=== PATIENT | male | born 1950 | race Caucasian/White ===

== ENCOUNTER 2025-09-22 10:17 | Day surgery (SDC) | payer OTHER ==
--- NOTE | 2025-09-15 14:54 | ELECTROCARDIOGRAPH REPORT ---
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 KWAN Walters Measurements Intervals [place] Rate: 73 P: 68 ME: 172 QRS: 64 QRSD: 88 T: 66 QT: 389 QTc: 429 Interpretive Statements Sinus rhythm Consider left atrial enlargement Low voltage, precordial leads Electronically Signed On 09-15-2025 18:20:[address] KWAN Walters Please click the below link to view image of tracing.
[2025-09-15 15:18] LABS: MEAN PLATELET VOLUME 7.2 FL (7.4-10.4); PRE OP HEMATOCRIT 45.3 % (42.0-52.0); PRE OP HEMOGLOBIN 15.2 g/dL (14.0-17.9); PRE OP PLATELET COUNT 280 X10'3 (140-440); PRE OP WHITE BLOOD COUNT 9.9 10'3 (4.8-10.8); RED CELL DISTRIBUTION WIDTH 13.8 % (11.5-14.5)
[2025-09-15 15:38] LABS: CREATININE 1.12 MG/DL (0.60-1.10); PRE OP ALT 23 U/L (30-65); PRE OP ANION GAP 5 (8-16); PRE OP AST 16 U/L (10-37); PRE OP BILIRUB, TOTAL 0.2 MG/DL (0.0-1.0); PRE OP GLUCOSE 90 MG/DL (70-104); PRE OP POTASSIUM 4.2 MMOL/L (3.4-5.1); PRE OP SODIUM 142 MMOL/L (135-145); TOTAL CARBON DIOXIDE 31.0 MMOL/L (24-32); eGFR 64 ML/MIN
[2025-09-22] VITALS (16 sets, daily range): BP systolic 130–153; BP diastolic 69–95; PULSE 65–80; RESP 12–22; TEMP 98.2; O2SAT 93–98
[~2025-09-22] VITALS: Ht 180.3 cm; Wt 88.5 kg
[2025-09-22] MEDS: ceFAZolin 2gm/dext,iso 50mL 50 ML IV ONE (09:50)
[~2025-09-22 10:17] MED LIST: ASPI-1265 PO; BUPIVAcaine/PF 2.5mg/ml (0.25%) 10ml vial ONE; CHOL500044 PO; GLUC-99 PO; LIDOcaine 1% 30ml preserv. free vial ONE; MULT-1172 PO; ringers solution, lacted 1,000 ML IV SCH
[2025-09-22] MEDS ORDERED: BUPIVACAINE liposomal/PF 13.3 MG/ML 10mL vial IM ONE (11:54)
[2025-09-22] MEDS ORDERED: BUPIVAcaine/PF 2.5mg/ml (0.25%) 10ml vial ONE (11:54)
--- NOTE | 2025-09-22 12:09 | HISTORY AND PHYSICAL ---
History & Physical Providers to CC CC: ALEX POOLE MD ~ History of Present Illness Reason for Admit\Complaint: Left inguinal hernia History of Present Illness This is an interval history and physical exam Patient was seen in the office greater than 30 days ago and diagnosed with left inguinal hernia He denies any change in his past medical history (please see previous history and physical exam for all pertinent details) He is scheduled for robotic assisted, laparoscopic left possible right inguinal hernia repair with mesh He has a complicated abdominal surgical history and this case may take longer than usual and require lysis of adhesions Allergies: Coded Allergies: No Known Allergies (Unverified , 12/30/23) Home Medications Home Medications Active Reported Vitamin D3 (Cholecalciferol (Vitamin D3)) 125 Mcg (5000 Unit) Tablet 1 Tab PO DAILY 30 Days Aspirin 81 Mg Tab.chew 1 Tab PO DAILY 30 Days Subeggd-Rhaiy-Okq Complex Cplt (Gluc/Tommy-Msm#1/Vit C/Nathanael/Bor) 1 Each Tablet 1 Each PO DAILY Centrum Silver Men Tablet (Multivit-Min/FA/Lycopen/Lutein) 300 Mcg-60 Mcg-600 Mcg-300 Mcg Tablet 1 Tab PO DAILY Family History Family History: Patient reports no known family medical history. ROS ROS Reviewed and negative Exam Vitals: Vital Signs Date Time Temp Pulse Resp B/P (MAP) Pulse Ox O2 Delivery O2 Flow Rate FiO2 09/22/25 10:58 80 15 96 09/22/25 10:25 Room Air General: 75-year-old male in no acute distress Chest: Lungs are clear to auscultation bilaterally Cardiovascular: Regular rate and rhythm without murmurs Abdomen: Soft and nondistended Surgical scars consistent with past surgical history Left inguinal hernia Left side marked with indelible ink Problems: (1) Left inguinal hernia Assessment & Plan: The risks, benefits, and alternatives to a robotic assisted, laparoscopic left possible right, possible open inguinal hernia repair with mesh were discussed with the patient. Risks include, but are not limited to, bleeding, infection, injury to intra-abdominal structures, hernia recurrence and chronic postoperative pain. We will proceed with surgery as scheduled ALEX POOLE MD Sep 22, 2025 12:08
[2025-09-22] MEDS ORDERED: midazolam 1 mg/ML 2ml injection ONE (12:16)
[2025-09-22] MEDS ORDERED: fentaNYL/PF 50MCG/1 ML 2ML syringe ONE (12:16)
[2025-09-22] MEDS: BUPIVAcaine/PF 2.5mg/ml (0.25%) 10ml vial IJ ONE (12:35)
[2025-09-22] MEDS: BUPIVACAINE liposomal/PF 13.3 MG/ML 10mL vial IM ONE (12:37)
[2025-09-22] MEDS: LIDOcaine 1% 30ml preserv. free vial IJ ONE (12:37)
[2025-09-22] MEDS ORDERED: hydrALAZINE 20mg/ml inj. IV PRN (12:55)
[2025-09-22] MEDS ORDERED: ondansetron/PF 4mg/2ml inj IV PRN (12:55)
[2025-09-22] MEDS ORDERED: HYDROmorphone/PF 0.2 MG/ML SYRINGE IV PRN ×2 (12:55)
[2025-09-22] MEDS ORDERED: labetalol 20mg/4ml (5mg/ml) syringe IV PRN (12:55)
[2025-09-22] MEDS ORDERED: morphine 4 MG/ML inj SYRINge IV PRN ×2 (12:55→16:56)
[2025-09-22] MEDS ORDERED: ringers solution, lacted 1,000 ML IV SCH (12:55)
[2025-09-22] MEDS ORDERED: propofol inj 20 ML IV ONE (13:31)
[2025-09-22] MEDS ORDERED: propofol inj 0 ML IV ONE (13:31)
[2025-09-22] MEDS ORDERED: dexamethasone sod phosphate 4mg/ml inj. ONE (13:31)
[2025-09-22] MEDS ORDERED: ondansetron/PF 4mg/2ml inj ONE (13:31)
[2025-09-22] MEDS ORDERED: rocuronium 10mg/ml inj IV ONE (13:31)
[2025-09-22] MEDS ORDERED: glycopyrrolate 0.2mg/ml inj ONE (13:32)
[2025-09-22] MEDS: acetaminophen 1,000mg/100ml IV 100 ML IV PRN (14:19)
[2025-09-22] MEDS ORDERED: HYDROcodone/acetaminophen 5mg/325mg tablet PO PRN (14:25)
[2025-09-22] MEDS ORDERED: LidoCAINE 2% Topical Jelly 11mL syringe (UROJET) TOP ONE (16:50)
--- NOTE | 2025-09-22 19:54 | OPERATIVE REPORT ---
Operative Report Providers to CC CC: AMADEO POOLE MD ~ Date of Procedure: Sep 22, 2025 Pre-Operative Diagnosis: Left inguinal hernia Post-Operative Diagnosis Bilateral inguinal hernias Procedure Performed Robotic assisted, laparoscopic bilateral inguinal hernia repair with mesh Surgeon: Amadeo Poole MD FACS Scheduling Analyst None Anesthesiologist: Lenin Brennan Type of Anesthesia: General Findings: Bilateral direct hernias: Left> right Minimal adhesions with midline mesh per surgical history Significant preperitoneal scarring, likely related to previous prostatectomy Wound class I Complications None Prosthetics\Implants used: Bilateral large Dextile mesh Estimated Blood Loss: 20 cc Specimen Removed: None Description of Procedure: Patient was brought to the operating room and identified by the nursing staff and the attending physician. Patient was placed supine and general anesthesia was induced. Patient's abdomen was prepped and draped in the standard sterile fashion. Preoperative antibiotics were given. Veress needle technique was used to camargo's point in the abdomen was insufflated without incident. Optical trocar was used to gain access to the abdomen in the left mid abdomen under laparoscopic visualization. Abdomen was surveyed. There were some adhesions to a midline mesh, however, these were minimal at worst. 8.5 mm robotic trocars were placed in the right lateral abdomen and through the mesh in the abdominal midline under laparoscopic visualization. The Syndero robotic arm was docked to the patient after mesh and suture were passed into the abdomen. With the patient in Trendelenburg position, the instruments were guided into the abdomen under laparoscopic visualization. There was a large indirect left inguinal hernia noted and a smaller indirect inguinal hernia noted on the right. There were surgical changes consistent with a history of laparoscopic prostatectomy. Across the pelvic inlet on the anterior abdominal wall, from the left to the right anterior superior iliac spine, a preperitoneal flap was developed. There was significant amount of scarring within the preperitoneal space between the bladder and the rectus muscles. The dissection was carried down to the symphysis pubis and the retropubic space of Retzius was developed. Dissection was carried out yan aterally. On the left, there was a large indirect inguinal hernia. Its contents containing preperitoneal fat and a fairly significant hernia sac were mobilized and reduced. On the right, there was a similar finding but a much smaller hernia sac with the contents. This was also completely reduced. Dissection continued into the retroperitoneum and out bilaterally. Peritoneum was dissected away from the cord structures and out laterally to accommodate 2 separate pieces of large Dextile mesh. Bilateral critical views of the myopectineal orifice were obtained. Mesh and suture was passed into the abdomen. Bilateral mesh was placed covering potential obturator, femoral, direct, and indirect hernia spaces. Mesh was anchored at Isauro's ligament, rectus muscle in the midline, and out laterally just anterior to the anterior superior iliac spine. Mesh laid without wrinkles or folds. Peritoneal rent was then reapproximated with running, absorbable 2/0 V-lock suture. [place] were retrieved. Percutaneous 0 Vicryl suture was used to close the 12 mm port site. The 8 mm port site through the mesh was closed percutaneously with nonabsorbable suture closing the small defect in the mesh. Remaining port was removed and the abdomen was allowed to deflate. Skin was closed at all sites with 4-0 Monocryl sutures in a subcuticular fashion. Sterile dressings were applied. Patient was awakened and taken to the postanesthesia care unit in stable condition. Counts repoted as correct: Yes AMADEO POOLE MD Sep 22, 2025 19:54
== END 2025-09-22 17:43 | disposition home or self-care (01) ==
LOC: PAS 10:17
PROVIDERS: ATTEND Surgery
DX: K40.20 Bilateral inguinal hernia, without obstruction or gangrene, not specified as recurrent (principal); E78.5 Hyperlipidemia, unspecified; F17.211 Nicotine dependence, cigarettes, in remission; K66.0 Peritoneal adhesions (postprocedural) (postinfection); Z79.82 Long term (current) use of aspirin; Z85.46 Personal history of malignant neoplasm of prostate; Z98.890 Other specified postprocedural states
CPT/HCPCS: 36415; 49650; 80053; 82948; 85025; 93005; C1781; J0131; J0666; J1100; J2003; J2250; J2405; J2704; J2710; J3010; J3490; J7030; J7120; S2900; Z7506; Z7508; Z7512; A4215; A4314; A4618